=== PATIENT | male | born 1975 | race African-American/Black ===

== ENCOUNTER 2024-03-22 18:01 | Emergency (ER) | payer OTHER ==
[~2024-03-22] VITALS: Ht 165.1 cm; Wt 78.2 kg
[2024-03-22 18:16] VITALS: PULSE 90; RESP 18; TEMP 98; O2SAT 97
[2024-03-22] MEDS ORDERED: HYDROCHLOROTHIA25 MG PO ×2 (18:47→19:00)
[2024-03-22] MEDS ORDERED: PREDNISONE20 MG PO (19:02)
[2024-03-22] MEDS ORDERED: VALTREX1000 MG PO (19:03)
== END 2024-03-22 19:35 | disposition home or self-care (01) ==
LOC: FSED 18:04
DX: G51.0 Bell's palsy (principal); I10 Essential (primary) hypertension; F17.210 Nicotine dependence, cigarettes, uncomplicated
CPT/HCPCS: 99283